=== PATIENT | female | born 1995 | race Caucasian/White ===

== ENCOUNTER 2016-12-30 22:46 | Emergency (ER) | payer OTHER ==
--- NOTE | 2016-12-30 23:47 | ER Document Report ---
ED General - General Chief Complaint: Vag Bleeding, +preg <12wks Stated Complaint: CRAMPING,VAGINAL BLEEDING Time Seen by Provider: 12/30/16 23:24 TRAVEL OUTSIDE OF THE [place] IN LAST 30 DAYS: No - HPI Notes: Patient is a 21-year-old female who is now a presents to the ED complaining of abdominal cramping and spotting while being approximately 6 weeks . Pt states that she has an occ mild HANNAH as well. Currently patient does not have any cramping. Patient states that she did have an early miscarriage that presented with similar symptoms in the past. Patient states that the spotting began this afternoon, while the cramping began a couple days ago. Patient states that she is still eating and drinking without any difficulties. She has not noticed any trouble urinating or issues with her bowel movements. Patient has not been seen by an LABOR RELATIONS MANAGER, but is scheduled in 2 weeks for follow-up. The pain does not radiate otherwise. Denies any fever, head injury, neck pain, URI, sore throat, chest pain, palpitations, syncope, cough, shortness of breath, wheeze, dyspnea, nausea/vomiting/diarrhea, urinary retention, dysuria, hematuria, loss of control of bowel or bladder, back pain, vaginal odor, or rash. Patient denies any smoking or drug use. Past Medical History - Social History Smoking Status: Never Smoker Family History: Reviewed & Not Pertinent Patient has suicidal ideation: No Patient has homicidal ideation: No Renal/ Medical History: Denies: Hx Peritoneal Dialysis Review of Systems - Review of Systems Notes: REVIEW OF SYSTEMS: CONSTITUTIONAL : Denies fever, chills, or sweats. Denies recent illness. EENT: Denies eye, ear, throat, or mouth pain or symptoms. Denies nasal or sinus congestion or discharge. Denies throat, tongue, or mouth swelling or difficulty swallowing. CARDIOVASCULAR: Denies chest pain. Denies palpitations or racing or irregular heart beat. Denies ankle edema. RESPIRATORY: Denies cough, cold, or chest congestion. Denies shortness of breath, difficulty breathing, or wheezing. GASTROINTESTINAL: see hpi GENITOURINARY: Denies difficulty urinating, painful urination, burning, frequency, blood in urine, or discharge. FEMALE GENITOURINARY: see hpi MUSCULOSKELETAL: Denies back or neck pain or stiffness. Denies joint pain or swelling. SKIN: Denies rash, lesions or sores. NEUROLOGICAL: see hpi. denies confusion or altered mental status. Denies passing out or loss of consciousness. Denies dizziness or lightheadedness. Denies weakness or paralysis or loss of use of either side. Denies problems with gait or speech. Denies sensory loss, numbness, or tingling. Denies seizures. ALL OTHER SYSTEMS REVIEWED AND NEGATIVE. Dictation was performed using [employer] voice recognition software Physical Exam - Vital signs Vitals: Temp Pulse Resp BP Pulse Ox 98.8 F 73 18 126/64 H 100 12/30/16 22:50 12/30/16 22:50 12/30/16 22:50 12/30/16 22:50 12/30/16 22:50 Notes: PHYSICAL EXAMINATION: GENERAL: Well-appearing, well-nourished and in no acute distress. EYES: Pupils equal round and reactive to light, extraocular movements intact, sclera anicteric, conjunctiva are normal. NECK: Normal range of motion, supple without lymphadenopathy LUNGS: Breath sounds clear to auscultation bilaterally and equal. No wheezes rales or rhonchi. HEART: Regular rate and rhythm without murmurs, rubs, gallops. ABDOMEN: Soft, nontender, nondistended abdomen. No guarding, no rebound. No masses appreciated. Normal bowel sounds present. No CVA tenderness bilaterally. Extremities: No cyanosis, clubbing, or edema b/l. Peripheral pulses 2+. Capillary refill less than 3 seconds. NEUROLOGICAL: Cranial nerves grossly intact. Normal speech, normal gait. Normal sensory, motor exams PSYCH: Normal mood, normal affect. SKIN: Warm, Dry, normal turgor, no rashes or lesions noted. Course - Re-evaluation Re-evalutation: 12/31/16 01:26 Patient is an afebrile, well-hydrated, 21-year-old female who presents the ED with a living intrauterine with a closed cervix, but reported spotting and cramping (?threatened ). Rh+. Vitals are stable. PE otherwise unremarkable. CBC, CMP, lipase, urinalysis were unremarkable. Refer to the transvaginal ultrasound. Low suspicion/risk for acute appendicitis, bowel obstruction, acute cholecystitis, acute cholangitis, perforated diverticulitis, incarcerated hernia, pancreatitis, perforated ulcer, peritonitis , sepsis, pelvic inflammatory disease, ectopic , tubo-ovarian abscess, ovarian torsion, or other systemic emergent condition at this time. Patient is aware that her condition can change from initial presentation and she needs to monitor symptoms closely and seek medical attention if any acute changes. Conservative measures otherwise for symptoms. Recheck with OBGYN in 1-2 days. Recheck with your PCM in 2-3 days. Return to the ED with any worsening/ concerning symptoms otherwise as reviewed in discharge. Patient is in agreement. - Vital Signs Vital signs: Temp Pulse Resp BP Pulse Ox 98.8 F 73 18 126/64 H 100 12/30/16 22:50 12/30/16 22:50 12/30/16 22:50 12/30/16 22:50 12/30/16 22:50 - Laboratory Result Diagrams: 12/30/16 23:50 12/30/16 23:50 Laboratory results interpreted by me: 12/30/16 12/30/16 12/30/16 23:45 23:50 23:50 WBC 10.9 H Beta HCG, Quant 11027.00 H Urine Urobilinogen 2.0 H Urine Ascorbic Acid 40 H Discharge - Discharge Clinical Impression: Spotting affecting in first trimester, Intrauterine Condition: Stable Disposition: HOME, SELF-CARE Instructions: Bleeding During Early ([facility]), [employer] Sales Expert Doctors, Threatened Miscarriage ([facility]), Follow-Up Care ([facility]) Additional Instructions: Monitor symptoms closely for any acute changes or worsening symptoms Tylenol as needed Direction per hand-outs Recheck with an OBGYN in the next 1-2 days* Recheck with your PCM this week Return to the ED with any worsening symptoms and/or development of fever, headache, chest pain, palpitations, syncope, shortness of breath, trouble breathing, abdominal pain, n/v/d, blood in stool/urine, vaginal bleeding/ discharge, or other worsening symptoms that are concerning to you. Referrals: [facility] [Provider Group] - Follow up as needed LABOR RELATIONS MANAGER [Provider Group] - Follow up tomorrow
[2016-12-31 00:18] LABS: ABSOLUTE EOSINOPHILS # (AUTO) 0.1 10^3/uL (0.0-0.6); ABSOLUTE LYMPHOCYTES (AUTO) 2.2 10^3/uL (0.5-4.7); ABSOLUTE MONOCYTES (AUTO) 0.5 10^3/uL (0.1-1.4); ABSOLUTE NEUT (AUTO) 8.1 10^3/uL (1.7-8.2); BASOPHILS % (AUTO) 0.2 % (0-2); EOSINOPHILS % (AUTO) 1.1 % (0-6); HEMATOCRIT 37.1 % (36.0-47.0); HEMOGLOBIN 12.6 g/dL (12.0-15.5); HGB HCT DIFFERENCE 0.7; LYMPHOCYTES % (AUTO) 20.3 % (13-45); MEAN CORPUSCULAR HEMOGLOBIN 29.7 pg (27.0-33.4); MEAN CORPUSCULAR HGB CONC 34.1 g/dL (32.0-36.0); MEAN CORPUSCULAR VOLUME 87 fl (80-97); MONOCYTES % (AUTO) 4.4 % (3-13); RED BLOOD COUNT 4.26 10^6/uL (3.72-5.28); RED CELL DISTRIBUTION WIDTH 13.8 % (11.5-14.0); WHITE BLOOD COUNT 10.9 10^3/uL (4.0-10.5)
[2016-12-31 00:28] LABS: ALANINE AMINOTRANSFERASE 26 U/L (9-52); ALBUMIN 4.2 g/dL (3.5-5.0); ALKALINE PHOSPHATASE 67 U/L (38-126); ANION GAP 11 (5-19); ASPARTATE AMINO TRANSFERASE 19 U/L (14-36); BILIRUBIN,DIRECT 0.2 mg/dL (0.0-0.4); BILIRUBIN,TOTAL 0.2 mg/dL (0.2-1.3); BLOOD UREA NITROGEN 12 mg/dL (7-20); CARBON DIOXIDE 23 mmol/L (22-30); CHLORIDE 104 mmol/L (98-107); CREATININE RESULT 0.67 mg/dL (0.52-1.25); GLUCOSE 77 mg/dL (75-110); POTASSIUM 3.9 mmol/L (3.6-5.0); SODIUM 137.8 mmol/L (137-145); TOTAL PROTEIN 7.2 g/dL (6.3-8.2)
[2016-12-31 00:46] LABS: APPEARANCE,URINE SLIGHTLY-CLOUDY; BILIRUBIN,URINE NEGATIVE (NEGATIVE); CALCIUM OXALATE CRYSTALS,URINE MODERATE /HPF; GLUCOSE, URINE NEGATIVE (NEGATIVE); KETONES,URINE NEGATIVE (NEGATIVE); LEUKOCYTE ESTERASE,URINE NEGATIVE (NEGATIVE); NITRITE,URINE NEGATIVE (NEGATIVE); PROTEIN,URINE NEGATIVE (NEGATIVE); URINE SPECIFIC GRAVITY 1.026
--- NOTE | 2016-12-31 01:18 | RADIOLOGY REPORT (SQ) ---
EXAM DESCRIPTION: U/S OB TRANSVAG W/DOPPLER COMPLETED DATE/TIME: 12/31/2016 12:36 am REASON FOR STUDY: vaginal bleeding, COMPARISON: None. TECHNIQUE: Transvaginal static and realtime grayscale images acquired of the pelvis. Additional kay cted spectral and color Doppler images recorded. All images stored on PACs. bHCG: Not available. LIMITATIONS: None. FINDINGS: FETUS: Living intrauterine . EGA: 6 weeks and 3 days SAMIR: 08/23/2017 FHR: 114 beats per minute. SUBCHORIONIC BLEED: No. SIZE OF BLEED: Not applicable. UTERUS: No masses. No anomalies. CERVICAL LENGTH: 2.8 cm. Closed. RIGHT ADNEXA: Normal 2.5 cm ovary with normal vascular flow. No adnexal free fluid. No adnexal masses. LEFT ADNEXA: Ovary not identified. No adnexal free fluid. No adnexal masses. FREE FLUID: None. OTHER: No other significant finding. IMPRESSION: LIVING INTRAUTERINE . EGA 6 weeks 3 days Trimester of : First - 0 to 13 weeks. TECHNICAL DOCUMENTATION: JOB ID: [id number] [employer]- All Rights Reserved
[2016-12-31 02:17] VITALS: BP 120/66
== END 2016-12-31 02:15 | disposition home or self-care (01) ==
LOC: ER 22:46
DX: O26.851 Spotting complicating pregnancy, first trimester (principal); O26.891 Other specified pregnancy related conditions, first trimester; R51 Headache; Z3A.00 Weeks of gestation of pregnancy not specified; Z87.59 Personal history of other complications of pregnancy, childbirth and the puerperium
CPT/HCPCS: 36415; 76817; 80053; 81001; 84702; 85025; 86900; 86901; 93976; 99284

== ENCOUNTER 2017-06-18 00:54 | Outpatient (CLI) | payer OTHER ==
[2017-06-18 01:53] LABS: APPEARANCE,URINE CLEAR; BILIRUBIN,URINE NEGATIVE (NEGATIVE); COLOR,URINE COLORLESS; GLUCOSE, URINE NEGATIVE (NEGATIVE); KETONES,URINE NEGATIVE (NEGATIVE); LEUKOCYTE ESTERASE,URINE NEGATIVE (NEGATIVE); NITRITE,URINE NEGATIVE (NEGATIVE); PROTEIN,URINE NEGATIVE (NEGATIVE); URINE SPECIFIC GRAVITY 1.004; UROBILINOGEN,URINE NEGATIVE mg/dL (<2.0)
[2017-06-18 01:58] LABS: URINE AMPHETAMINES SCREEN NEGATIVE; URINE BARBITURATES SCREEN NEGATIVE; URINE BENZODIAZEPINES SCREEN NEGATIVE; URINE COCAINE SCREEN NEGATIVE; URINE MARIJUANA (THC) SCREEN NEGATIVE; URINE METHADONE SCREEN NEGATIVE; URINE PHENCYCLIDINE SCREEN NEGATIVE
== END 2017-06-18 02:30 | disposition home or self-care (01) ==
LOC: LC 00:54
PROVIDERS: ATTEND Obstetrics & Gynecology
PROC: 4A1HXCZ Monitoring of Products of Conception, Cardiac Rate, External Approach (ICD-10-PCS; principal; 2017-06-18)
DX: O47.03 False labor before 37 completed weeks of gestation, third trimester (principal); Z3A.31 31 weeks gestation of pregnancy; Z79.899 Other long term (current) drug therapy
CPT/HCPCS: 80307; 81001

== ENCOUNTER → 2017-07-23 | Outpatient (CLI) | payer OTHER ==
--- NOTE | 2017-07-23 11:14 | Non Stress Test Report ---
Non Stress Test Datetime Report Generated by CPN: 07/23/2017 11:13 DEMOGRAPHIC EGA NST: 36.0 INDICATION Indication for Study: Ordered by Provider MONITORING Monitor Explained: Monitor Explained; Test Explained; Patient Verbalized Understanding Time on Monitor: 07/23/2017 10:09 Time off Monitor: 07/23/2017 11:12 NST Duration: 63 NST INTERVENTIONS NST Interventions: PO Hydration BABY A: [id number] BABY A Movement : Present Contraction Frequency : rare FHR Baseline : 120 Accelerations : 15X15 Decelerations : None Variability : Moderate 6-25bpm NST Review: Meets Criteria for Reactive NST NST Review and Verified By : D Bellavance RNC NST Results: Reactive NST REPORT Report Trigger: Send Report
== END ==
LOC: LC 09:51
PROVIDERS: ATTEND Obstetrics & Gynecology
PROC: 4A1HXCZ Monitoring of Products of Conception, Cardiac Rate, External Approach (ICD-10-PCS; principal; 2017-07-23)
DX: Z34.93 Encounter for supervision of normal pregnancy, unspecified, third trimester (principal)
CPT/HCPCS: 59025

== ENCOUNTER 2017-08-08 13:22 | Outpatient (CLI) | payer OTHER ==
[2017-08-08 14:47] LABS: APPEARANCE,URINE CLEAR; BILIRUBIN,URINE NEGATIVE (NEGATIVE); COLOR,URINE YELLOW; GLUCOSE, URINE NEGATIVE (NEGATIVE); KETONES,URINE NEGATIVE (NEGATIVE); LEUKOCYTE ESTERASE,URINE NEGATIVE (NEGATIVE); NITRITE,URINE NEGATIVE (NEGATIVE); PROTEIN,URINE NEGATIVE (NEGATIVE); URINE SPECIFIC GRAVITY 1.012; UROBILINOGEN,URINE NEGATIVE mg/dL (<2.0)
[2017-08-08 14:59] LABS: URINE AMPHETAMINES SCREEN NEGATIVE; URINE BARBITURATES SCREEN NEGATIVE; URINE BENZODIAZEPINES SCREEN NEGATIVE; URINE COCAINE SCREEN NEGATIVE; URINE MARIJUANA (THC) SCREEN NEGATIVE; URINE METHADONE SCREEN NEGATIVE; URINE PHENCYCLIDINE SCREEN NEGATIVE
== END 2017-08-08 15:26 | disposition home or self-care (01) ==
LOC: LC 13:22
PROVIDERS: ATTEND Student in an Organized Health Care Education/Training Program
PROC: 4A1HXCZ Monitoring of Products of Conception, Cardiac Rate, External Approach (ICD-10-PCS; principal; 2017-08-08)
DX: O47.1 False labor at or after 37 completed weeks of gestation (principal); Z3A.38 38 weeks gestation of pregnancy
CPT/HCPCS: 80307; 81001; 82962

== ENCOUNTER 2017-08-11 15:13 | Outpatient (CLI) | payer OTHER | END 2017-08-11 15:49 | disposition home or self-care (01) | LOC: LC 15:13 | PROVIDERS: ATTEND Obstetrics & Gynecology Gynecology | PROC: 4A1HXCZ Monitoring of Products of Conception, Cardiac Rate, External Approach (ICD-10-PCS; principal; 2017-08-11) | DX: Z34.93 Encounter for supervision of normal pregnancy, unspecified, third trimester (principal) | CPT/HCPCS: 59025 ==

== ENCOUNTER 2017-08-19 16:42 | Outpatient (CLI) | payer OTHER ==
--- NOTE | 2017-08-19 17:58 | Non Stress Test Report ---
Non Stress Test Datetime Report Generated by CPN: 08/19/2017 17:58 DEMOGRAPHIC Test Number: 2 EGA NST: 39.6 EGA NST: 38.5 EGA NST: 38.2 INDICATION Indication for Study: Diabetes Mellitus Indication for Study: Gestational Hypertension Indication for Study: Ordered by Provider VITAL SIGNS Temperature - NST: 98.4 Temperature - NST: 98.6 Pulse - NST: 75 RESP - NST: 18 NBPSYS NST: 128 NBPSYS NST: 116 NBPDIA NST: 77 NBPDIA NST: 74 MONITORING Monitor Explained: Monitor Explained; Test Explained; Patient Verbalized Understanding Monitor Explained: Monitor Explained; Test Explained; Patient Verbalized Understanding Monitor Explained: Monitor Explained; Test Explained; Patient Verbalized Understanding Time on Monitor: 08/19/2017 17:04 Time on Monitor: 08/11/2017 15:26 Time on Monitor: 08/08/2017 13:51 Time off Monitor: 08/19/2017 17:25 Time off Monitor: 08/11/2017 15:47 Time off Monitor: 08/08/2017 14:20 NST Duration: 21 NST Duration: 21 NST Duration: 29 NST INTERVENTIONS NST Interventions: None NST Interventions: PO Hydration NST Interventions: None Physician Notified NST: Keegan Batista CNM Physician Notified NST: Dilia Alba CNMercedes Physician Notified NST: Dr. Davis BABY A: [id number] BABY A Movement : Present Movement : Present Movement : Present Contraction Frequency : rare Contraction Frequency : none Contraction Frequency : Occ FHR Baseline : 130 FHR Baseline : 130 FHR Baseline : 135 Accelerations : 15X15 Accelerations : 15X15 Accelerations : 15X15 Decelerations : None Decelerations : None Decelerations : None Variability : Moderate 6-25bpm Variability : Moderate 6-25bpm Variability : Moderate 6-25bpm NST Review: Meets Criteria for Reactive NST NST Review: Meets Criteria for Reactive NST NST Review: Meets Criteria for Reactive NST NST Review and Verified By : Diann CRUZ NST Review and Verified By : GEOVANI NICE RN NST Review and Verified By : Rosa Maria Jeffries RN NST Results: Reactive NST Results: Reactive NST Results: Reactive NST REPORT Report Trigger: Send Report
== END 2017-08-19 17:26 | disposition home or self-care (01) ==
LOC: LC 16:42
PROVIDERS: ATTEND Obstetrics & Gynecology
PROC: 4A1HXCZ Monitoring of Products of Conception, Cardiac Rate, External Approach (ICD-10-PCS; principal; 2017-08-19)
DX: O24.419 Gestational diabetes mellitus in pregnancy, unspecified control (principal); O13.3 Gestational [pregnancy-induced] hypertension without significant proteinuria, third trimester; Z3A.39 39 weeks gestation of pregnancy
CPT/HCPCS: 59025

== ENCOUNTER 2017-08-20 22:56 | Outpatient (CLI) | payer OTHER ==
[2017-08-21 00:08] LABS: URINE AMPHETAMINES SCREEN NEGATIVE; URINE BARBITURATES SCREEN NEGATIVE; URINE BENZODIAZEPINES SCREEN NEGATIVE; URINE COCAINE SCREEN NEGATIVE; URINE MARIJUANA (THC) SCREEN NEGATIVE; URINE METHADONE SCREEN NEGATIVE; URINE PHENCYCLIDINE SCREEN NEGATIVE
[2017-08-21 00:19] LABS: APPEARANCE,URINE SLIGHTLY-CLOUDY; BILIRUBIN,URINE NEGATIVE (NEGATIVE); COLOR,URINE YELLOW; GLUCOSE, URINE NEGATIVE (NEGATIVE); KETONES,URINE NEGATIVE (NEGATIVE); LEUKOCYTE ESTERASE,URINE NEGATIVE (NEGATIVE); NITRITE,URINE NEGATIVE (NEGATIVE); PROTEIN,URINE NEGATIVE (NEGATIVE); URINE SPECIFIC GRAVITY 1.012; UROBILINOGEN,URINE NEGATIVE mg/dL (<2.0)
--- NOTE | 2017-08-21 00:50 | Non Stress Test Report ---
Non Stress Test Datetime Report Generated by CPN: 08/21/2017 00:49 DEMOGRAPHIC EGA NST: 40.0 INDICATION Indication for Study: Ordered by Provider URINE RESULTS Urine Protein, NST: Negative Urine Ketones - NST: Negative Urine Glucose - NST: Negative Urine Blood - NST: Negative MONITORING Monitor Explained: Monitor Explained; Test Explained; Patient Verbalized Understanding Time on Monitor: 08/20/2017 23:12 Time off Monitor: 08/21/2017 00:32 NST Duration: 80 NST INTERVENTIONS NST Interventions: PO Hydration Physician Notified NST: Dr. Valentine BABY A: [id number] BABY A Movement : Present Contraction Frequency : Irregular FHR Baseline : 125 Accelerations : 15X15 Decelerations : None Variability : Moderate 6-25bpm NST Review: Meets Criteria for Reactive NST NST Review and Verified By : Cristal Arora RN NSJose Daniel Results: Reactive NST REPORT Report Trigger: Send Report
== END 2017-08-21 00:37 | disposition home or self-care (01) ==
LOC: LC 22:56
PROVIDERS: ATTEND Obstetrics & Gynecology Gynecology
PROC: 4A1HXCZ Monitoring of Products of Conception, Cardiac Rate, External Approach (ICD-10-PCS; principal; 2017-08-20)
DX: Z34.93 Encounter for supervision of normal pregnancy, unspecified, third trimester (principal)
CPT/HCPCS: 59025; 80307; 81005

== ENCOUNTER 2017-08-24 18:27 | Inpatient (IN) | payer OTHER ==
[2017-08-24] MEDS ORDERED: RINGERS SOLUTION,LACTATED 1,000 ML IV PRN (18:37)
[2017-08-24] MEDS ORDERED: RINGERS SOLUTION,LACTATED 300 ML IV ONE (18:37)
[2017-08-24] MEDS ORDERED: DINOPROSTONE 10 MG VAGINAL INSERT.SR PV PRN (18:37)
[2017-08-24 19:00] LABS: APPEARANCE,URINE CLOUDY; BILIRUBIN,URINE NEGATIVE (NEGATIVE); COLOR,URINE YELLOW; GLUCOSE, URINE 50 mg/dL (NEGATIVE); KETONES,URINE NEGATIVE (NEGATIVE); LEUKOCYTE ESTERASE,URINE NEGATIVE (NEGATIVE); NITRITE,URINE NEGATIVE (NEGATIVE); PROTEIN,URINE NEGATIVE (NEGATIVE); URINE SPECIFIC GRAVITY 1.017
[2017-08-24 19:09] LABS: ABSOLUTE BASOPHILS # (AUTO) 0.1 10^3/uL (0.0-0.2); ABSOLUTE EOSINOPHILS # (AUTO) 0.1 10^3/uL (0.0-0.6); ABSOLUTE LYMPHOCYTES (AUTO) 1.6 10^3/uL (0.5-4.7); ABSOLUTE MONOCYTES (AUTO) 0.6 10^3/uL (0.1-1.4); ABSOLUTE NEUT (AUTO) 9.5 10^3/uL (1.7-8.2); BASOPHILS % (AUTO) 0.5 % (0-2); EOSINOPHILS % (AUTO) 0.7 % (0-6); HEMATOCRIT 38.4 % (36.0-47.0); LYMPHOCYTES % (AUTO) 13.3 % (13-45); MEAN CORPUSCULAR VOLUME 91 fl (80-97); PLATELET COUNT 236 10^3/uL (150-450); RED BLOOD COUNT 4.21 10^6/uL (3.72-5.28); SEGMENTED NEUTROPHILS % (AUTO) 80.5 % (42-78); TOTAL CELLS COUNTED % (AUTO) 100 %; WHITE BLOOD COUNT 11.8 10^3/uL (4.0-10.5)
[2017-08-24 19:21] LABS: URINE AMPHETAMINES SCREEN NEGATIVE; URINE BARBITURATES SCREEN NEGATIVE; URINE BENZODIAZEPINES SCREEN NEGATIVE; URINE COCAINE SCREEN NEGATIVE; URINE MARIJUANA (THC) SCREEN NEGATIVE; URINE METHADONE SCREEN NEGATIVE; URINE PHENCYCLIDINE SCREEN NEGATIVE
[2017-08-24] MEDS ORDERED: DINOPROSTONE 10 MG VAGINAL INSERT.SR ONE (20:55)
--- NOTE | 2017-08-24 21:29 | Admission Physical ---
Datetime Report Generated by CPN: 08/24/2017 21:28 CURRENT ADMISSION Chief Complaint: Scheduled Induction of Labor Indication for Induction: Maternal Diabetes Admit Impression : Term, Intrauterine ; No Active Labor; Intact Membranes; Induction of Labor Admit Plan: Admit to Unit; Initiate Labor Induction Protocol ALLERGIES Medication Allergies: No Medication Allergies: No Known Allergies (08/24/2017) Latex: No Latex Allergies Food Allergies: none Environmental Allergies: none OBSTETRICAL HISTORY EDC: 08/20/2017 00:00 : 2 Para: 0 Term: 0 : 0 SAB: 0 IAB: 0 Ectopic: 0 Livin Cesareans: 0 VBACs: 0 Multiple Births: 0 Gestational Diabetes: Yes Rh Sensitization: No Incompetent Cervix: No PORSHA: No Infertility: No ART Treatment: No Uterine Anomaly: No IUGR: No Hx Previous C/S: No Macrosomia: No Hx Loss/Stillborn: No PIH: No Hx : No Placenta Previa/Abruption: No Depression/PP Depression: Yes PTL/PROM: No Post Hemorrhage: No Current Procedures: Ultrasound Obstetrical History Comments: 05/2016 SAB 4-5weeks G2 - current, GDM, diet controlled SEE RECORDS Alcohol: No Marijuana : No Cocaine: No Other Illicit Drugs: No Cigarettes: Never Smoker. [id number] MEDICAL HISTORY Diabetes: Yes Diabetes Type: Gestational Diabetes Blood Transfusion: No Pulmonary Disease (Asthma, TB): No Breast Disease: No Hypertension: No Teaching Assistant Surgery: No Heart Disease: No Hosp/Surgery: Yes Autoimmune Disorder: No Anesthetic Complications: No Kidney Disease: No Abnormal Pap Smear: No Neuro/Epilepsy: No Psychiatric Disorders: No Other Medical Diseases: No Hepatitis/Liver Disease: No Significant Family History: No Varicosities/Phlebitis: No Trauma/Violence : No Thyroid Dysfunction: No Medical History Comments: Hx of Suicide attempt in 2016 2006 surgery on foot to remove infection INFECTIOUS HISTORY Gonorrhea: No Genital Herpes: No Chlamydia: No Tuberculosis: No Syphilis: No Hepatitis: No HIV/AIDS Exposure: No Rash or Viral Illness: No HPV: No PHYSICAL EXAM General: Normal HEENT: Normal Neurologic: Normal Thyroid: Deferred Heart: Normal Lungs: Normal Breast: Deferred Back: Normal Abdomen: Normal Genitourinary Exam: Normal Extremities: Normal DTRs: Normal Pelvic Type: Adequate Vital Signs: Reviewed VAGINAL EXAM Dilatation: 1 Effacement: 50 Station: -2 Contraction Comments: q 5-7 MEMBRANES Membranes: Intact FETUS A EGA: 40.4 Monitoring: External US FHR- Baseline: 120 Variability: Moderate 6-25bpm Accelerations: 15X15 Decelerations: None Presentation: Vertex Admit Comment: 21yo at 40+4ega presents for IOL due to A1GDM (no logs on last several visits). Cervix not favorable. Bishops 5 - and patient was counseled in office regarding. Pelvis adequate for LEAH. Reassuring FWB. 2 wk AC lag - monitor s/d ratios. GBS negative. Cervidil placed for cervical ripening. Will likely need cooks catheter and pitocin in am. Anticipate . PLANS FOR LABOR AND DELIVERY Labor and Delivery: None Pain Management: None Other Pain Management Plans: Undecided Feeding Preference: Both Benefit of Breast Feed Discussed: Yes Circumcision: N/A INFORMED CONSENT Informed Consent Obtained: Vaginal Delivery; Induction of Labor; Risks, Benefits and Alternatives Discussed Signature: with User ID: [email or web address]
[2017-08-25] MEDS ORDERED: NALBUPHINE HCL INJ 10 MG/1 ML AMPULE ONE (03:52)
[2017-08-25] MEDS ORDERED: OXYTOCIN/NORMAL SALINE 20 UNIT/1,000 ML RTUINJ IV PRN ×2 (04:18→10:07)
[2017-08-25] MEDS ORDERED: OXYTOCIN/NORMAL SALINE 0 UNIT/0 ML RTUINJ ONE (04:25)
[2017-08-25] MEDS ORDERED: NALBUPHINE HCL INJ 10 MG/1 ML AMPULE INJ ONE (04:32)
--- NOTE | 2017-08-25 04:34 | L&D Progress Notes ---
PROGRESS NOTES Datetime Report Generated by CPN: 08/25/2017 04:34 PROGRESS NOTE Impression: Normal Progression of Labor Plan: Continue Present Management; Induction; Anticipate Vaginal Delivery Informed Consent Obtained: Vaginal Delivery; Induction of Labor; Risks, Benefits and Alternatives Discussed Informed Consent Obtained: Vaginal Delivery; Induction of Labor; Risks, Benefits and Alternatives Discussed Comment: Cervidil placed at 2100 and fell out at approx 0245. Will begin pitocin Induction. Bishops now 9 - favorable. Nubain given for pain. Epidural upon patient request. Anticipate . H/o suicide attempt will need community development planner pp. VAGINAL EXAM Dilatation: 1 Effacement: 50 Station: -2 Contractions: q 5-7 MEMBRANES Membranes: Intact Membranes: Intact FETUS A FHR - Baseline: 125 Monitoring: External US Variability: Moderate 6-25bpm Accelerations: 15X15 Decelerations: None FHR Category: Category I Presentation: Vertex SIGNATURE SIGNATURE: [id number];[id number];[id number] SIGNATURE: [id number];[id number] SIGNATURE: [id number] SIGNATURE: [id number] SIGNATURE: [id number] Signature: with User ID: [email or web address]
[2017-08-25] MEDS ORDERED: FENTANYL CITRATE INJ/PF 100 MCG/2 ML AMPUL ONE (05:16)
[2017-08-25] MEDS ORDERED: EPHEDRINE SULFATE INJ 50 MG/1 ML AMPULE ONE (05:16)
[2017-08-25] MEDS ORDERED: PHENYLEPHRINE HCL INJ/PF 10 MG/1 ML SDV ONE (05:16)
[2017-08-25] MEDS ORDERED: MISOPROSTOL 0.2 MG TABLET ONE (05:17)
[2017-08-25] MEDS ORDERED: OXYTOCIN/NORMAL SALINE 20 UNIT/1,000 ML RTUINJ ONE (05:17)
[2017-08-25] MEDS ORDERED: BUPIVACAINE HCL 0.25 % INJ/PF (2.5 MG/1 ML) 30 ML VIAL ONE (05:17)
[2017-08-25] MEDS ORDERED: LIDOCAINE 1% INJ-PF (10 MG/ML) 30 ML SDV ONE (05:17)
[2017-08-25] MEDS ORDERED: FENTANYL/BUPIVACAINE/NS/PF 300 MCG/150 ML RTUINJ EPI ONE (05:17)
[2017-08-25] MEDS ORDERED: EPHEDRINE SULFATE INJ 50 MG/1 ML AMPULE IV PRN (05:31)
[2017-08-25] MEDS ORDERED: EPHEDRINE SULFATE INJ 50 MG/1 ML AMPULE IV ONE (05:31)
[2017-08-25] MEDS ORDERED: BUPIVACAINE HCL 0.25 % INJ/PF (2.5 MG/1 ML) 30 ML VIAL INFIL ONE (05:31)
[2017-08-25] MEDS ORDERED: FENTANYL/BUPIVACAINE/NS/PF 200 MCG/100 ML RTUINJ EPI PRN (05:31)
[2017-08-25] MEDS ORDERED: BENZOIN/ALOE VERA/STORAX/TOLU TINCTURE 60 ML TP PRN (05:31)
[2017-08-25] MEDS ORDERED: ACETAMINOPHEN WITH CODEINE #3 TABLET PO PRN (10:07)
[2017-08-25] MEDS ORDERED: DIBUCAINE 1% OINTMENT 28 GM TP PRN (10:07)
[2017-08-25] MEDS ORDERED: MEASLES,MUMPS&RUBELLA VACC/PF 0.5 ML VIAL SUBCUT PRN (10:07)
[2017-08-25] MEDS ORDERED: BENZOCAINE/MENTHOL AEROSOL SPRAY 56 ML TOP PRN (10:07)
[2017-08-25] MEDS ORDERED: ZOLPIDEM TARTRATE 5 MG TABLET PO PRN (10:07)
[2017-08-25] MEDS ORDERED: DIPH/PERTUSS(ACELL)/TETANUS VAC/PF 0.5 ML SYR (>=10YO) IM PRN (10:07)
--- NOTE | 2017-08-25 10:55 | Delivery Summary ---
Del Sum A-C Datetime Report Generated by CPN: 08/25/2017 10:54 DELIVERY PERSONNEL DELIVERY PERSONNEL: [id number] Delivery Doctor:: Nicky Stone CNM Labor and Delivery Nurse:: NANCY Gasca Labor and Delivery Nurse:: Stewart Liu RN Nursery Nurse:: NANCY Bauer Footwear Production Machine Operator/FRUIT RANCHER: Dominique Way, FRUIT RANCHER II MATERNAL INFORMATION Delivery Anesthesia: Epidural Medications After Delivery: Pitocin Bolus-Please Comment; Pitocin Drip 20 Units/1000ml NSS Provider Comments: of viable female , head, shoulders, and body delivered without difficulty, with spontaneous cry and respirations, to maternal abdomen, cord, clamped X2 and cut free after 2 min delay. Spontaneous delivery of placenta appears intact, meconium stained, 3 VC, delivered via jorge mechanism. hemostasis acheived with external fundal massage and IV pitocin, mother and infant in stable condition, routine pp care. LABOR SUMMARY EDC: 08/20/2017 00:00 No. Babies in Womb: 1 Attempted: No Labor Anesthesia: Epidural LABOR INFORMATION Onset of Labor: 08/25/2017 05:07 Complete Dilatation: 08/25/2017 07:47 Cervical Ripening Agents: Cervidil Oxytocin: Induction Group B Beta Strep: Negative Steroids Given: None Reason Steroids Not Administered: Not Applicable MEMBRANES Membranes Rupture Method: Spontaneous Rupture of Membranes: 08/25/2017 05:07 Length of Rupture (hr): 3.47 Amniotic Fluid Color: Moderate Meconium Amniotic Fluid Amount: Moderate Amniotic Fluid Odor: Normal STAGES OF LABOR Stage 1 hr: 2 Stage 1 min: 40 Stage 2 hr: 0 Stage 2 min: 48 Stage 3 hr: 0 Stage 3 min: 4 Total Time in Labor hr: 3 Total Time in Labor min: 32 VAGINAL DELIVERY Episiotomy: None Laceration #1: None Laceration Repair: Not Applicable Laceration Repair Note: none Sponge Count Correct: N/A Sharps Count Correct: N/A CSECTION DELIVERY Primary Indication: N/A Secondary Indication: N/A CSection Incidence: N/A Labor: N/A Elective: N/A CSection Incision: N/A BABY A INFORMATION Delivery Date/Time: 08/25/2017 08:35 Method of Delivery: Vaginal Born in Route : No : N/A Forceps: N/A Vacuum Extraction: N/A Shoulder Dystocia : No PRESENTATION/POSITION BABY A Presentation: Cephalic Cephalic Presentation: Vertex Vertex Position: Left Occipital Anterior Breech Presentation: N/A PLACENTA INFORMATION BABY A Placenta Delivery Time : 08/25/2017 08:39 Placenta Method of Delivery: Spontaneous Placenta Status: Delivered SCORES BABY A Heart Rate 1 min: >100 bpm Resp Effort 1 min: Good Cry Reflex Irritability 1 min: Cough or Sneeze or Pulls Away Muscle Tone 1 min: Active Motion Color 1 min: Blue/Pale Resuscitation Effort 1 min: N/A; Tactile Stimulation SCORE 1 MIN: 8 Heart Rate 5 min: >100 bpm Resp Effort 5 min: Good Cry Reflex Irritability 5 min: Cough or Sneeze or Pulls Away Muscle Tone 5 min: Active Motion Color 5 min: Body [place], Extremities Blue Resuscitation Effort 5 min: N/A; Tactile Stimulation SCORE 5 MIN: 9 Resuscitation Effort 10 min: N/A INFORMATION BABY A Gestational Age at Delivery: 40.5 Gestational Status: Full Term- 39- 40.6 Weeks Infant Outcome : Liveborn Infant Condition : Stable Sex: Female IDENTIFICATION BABY A Infant Verification Date/Time: 08/25/2017 08:49 ID Band Number: [id number] Mother's Name Verified: Yes RN Verifying : R Jorden RN, D Bellavance RN WEIGHT/LENGTH BABY A Infant Birthweight (gm): 2940 Weight (lb): 6 Infant Weight (oz): 8 Infant Length (in): 19.50 Length (cm): 49.53 CORD INFORMATION BABY A No. Cord Vessels: 3 Nuchal Cord : N/A Cord Blood Taken: Yes-For Storage (Mom's Blood type +) Suction: Mouth ASSESSMENT BABY A Complications: None Physical Findings at Delivery: Puncture Wound from Scalp Electrode Infant Respirations: Appears Normal Skin to Skin: Yes Contact Center Specialist/ALS Called : No Infant Care By: D Bellavance RNC Transferred To: Remains with Mother BABY B INFORMATION : N/A SIGNATURES Assignment: Eladio Valentine MD Signature: with User ID: Mercedes : with User ID: [email or web address]
[2017-08-25] MEDS: IBUPROFEN 800 MG TABLET PO SCH ×2 (15:22→21:00)
[2017-08-25] MEDS: DOCUSATE SODIUM 100 MG CAPSULE PO SCH (18:25)
[2017-08-25] MEDS: FERROUS SULFATE 325 MG TABLET PO SCH (18:25)
[2017-08-25] MEDS: ACETAMINOPHEN WITH CODEINE #3 TABLET PO PRN (20:56)
[2017-08-26] MEDS: IBUPROFEN 800 MG TABLET PO SCH ×3 (06:59→22:06)
[2017-08-26 07:46] LABS: HEMATOCRIT 34.7 % (36.0-47.0); HEMOGLOBIN 11.5 g/dL (12.0-15.5); MEAN CORPUSCULAR HEMOGLOBIN 30.6 pg (27.0-33.4); MEAN CORPUSCULAR HGB CONC 33.3 g/dL (32.0-36.0); MEAN CORPUSCULAR VOLUME 92 fl (80-97); PLATELET COUNT 197 10^3/uL (150-450); RED BLOOD COUNT 3.77 10^6/uL (3.72-5.28); RED CELL DISTRIBUTION WIDTH 15.4 % (11.5-14.0); WHITE BLOOD COUNT 11.7 10^3/uL (4.0-10.5)
[2017-08-26] MEDS: PRENATAL VITAMIN W DHA CAPSULE PO SCH (09:15)
[2017-08-26] MEDS: DOCUSATE SODIUM 100 MG CAPSULE PO SCH ×2 (09:16→18:08)
[2017-08-26] MEDS: FERROUS SULFATE 325 MG TABLET PO SCH ×2 (09:16→18:08)
[2017-08-26] MEDS: SENNOSIDES/DOCUSATE 8.6-50 MG 1 EACH TABLET PO SCH (09:17)
--- NOTE | 2017-08-26 11:15 | PDOC PROGRESS REPORT ---
Subjective-OB Progress Note for:: 08/26/17 Subjective: s/p day #1 denies concern, lochia is stable, pain well controlled, voiding without difficulty. Physical Exam (OB) Vital Signs: Temp Pulse Resp BP Pulse Ox 97.8 F 82 18 105/49 L 85 L 08/26/17 07:37 08/26/17 07:37 08/26/17 07:37 08/26/17 07:37 08/26/17 07:37 Intake & Output 08/25/17 08/26/17 08/27/17 06:59 06:59 06:59 Weight 71.5 kg - PIH/Pre-Eclampsia DTR's: 2 + Clonus: Negative Headache: Absent Epigastric Pain: No Visual Changes: No - Lochia Lochia Amount: Scant < 10 ml Lochia Color: Rubra/Red - Abdomen Description: Soft, Round Hernia Present: No Fundal Description: Firm Fundal Height: u/u - u/2 Objective-Diagnostic Laboratory: 08/26/17 07:06 08/26/17 07:06 WBC 11.7 H RBC 3.77 Hgb 11.5 L Hct 34.7 L MCV 92 MCH 30.6 MCHC 33.3 RDW 15.4 H Plt Count 197 Assessment and Plan(PN) - Assessment and Plan (1) Vaginal delivery Is this a current diagnosis for this admission?: Yes Plan: routine pp care (2) Depression affecting Is this a current diagnosis for this admission?: Yes Plan: d/c conservation planner (3) Gestational diabetes mellitus (GDM) in childbirth, diet controlled Is this a current diagnosis for this admission?: Yes Plan: yearly f/u (4) H/O suicide attempt Is this a current diagnosis for this admission?: Yes Plan: d/c conservation planner - Time Spent with Patient Time with patient: Less than 15 minutes Critical Time spent with patient: Less than 15 minutes Medications reviewed and adjusted accordingly: Yes - Disposition Anticipated Discharge: Home Within: within 24 hours
[2017-08-26] MEDS: ACETAMINOPHEN WITH CODEINE #3 TABLET PO PRN (22:05)
[2017-08-27] MEDS: IBUPROFEN 800 MG TABLET PO SCH (06:23)
[2017-08-27 08:11] VITALS: BP 112/49
[2017-08-27] MEDS: DOCUSATE SODIUM 100 MG CAPSULE PO SCH (09:56)
[2017-08-27] MEDS: FERROUS SULFATE 325 MG TABLET PO SCH (09:56)
[2017-08-27] MEDS: PRENATAL VITAMIN W DHA CAPSULE PO SCH (09:56)
[2017-08-27] MEDS: SENNOSIDES/DOCUSATE 8.6-50 MG 1 EACH TABLET PO SCH (09:56)
--- NOTE | 2017-08-27 11:30 | PDOC PROGRESS REPORT ---
Subjective-OB Progress Note for:: 08/27/17 Subjective: Doing well, no c/o, on Zoloft 100, no issues with depression or anxiety, breast feeding. eating well, mod lochia Physical Exam (OB) Vital Signs: Temp Pulse Resp BP Pulse Ox 98.0 F 65 16 112/49 L 99 08/27/17 07:50 08/27/17 07:50 08/26/17 19:44 08/27/17 07:50 08/27/17 07:50 Intake & Output 08/26/17 08/27/17 08/28/17 06:59 06:59 06:59 Intake Total 250 Balance 250 - PIH/Pre-Eclampsia DTR's: 1 + Clonus: Negative Headache: Absent Epigastric Pain: No Visual Changes: No - Lochia Lochia Amount: Scant < 10 ml Lochia Color: Rubra/Red - Abdomen Description: Soft, Round Hernia Present: No Fundal Description: Firm, Midline Fundal Height: u/u - u/2 Objective-Diagnostic Laboratory: 08/26/17 07:06 Assessment and Plan(PN) - Assessment and Plan (1) Vaginal delivery Is this a current diagnosis for this admission?: Yes (2) Depression affecting Is this a current diagnosis for this admission?: Yes (3) Gestational diabetes mellitus (GDM) in childbirth, diet controlled Is this a current diagnosis for this admission?: Yes (4) H/O suicide attempt Is this a current diagnosis for this admission?: Yes - Time Spent with Patient Medications reviewed and adjusted accordingly: Yes - Disposition Anticipated Discharge: Home Within: Other - home today
--- NOTE | 2017-08-27 11:34 | PDOC DISCHARGE SUMMARY ---
Final Diagnosis Discharge Date: 08/27/17 - Final Diagnosis (1) Vaginal delivery Is this a current diagnosis for this admission?: Yes (2) Depression affecting Is this a current diagnosis for this admission?: Yes (3) Gestational diabetes mellitus (GDM) in childbirth, diet controlled Is this a current diagnosis for this admission?: Yes (4) H/O suicide attempt Is this a current diagnosis for this admission?: Yes Discharge Data - Discharge Medication Home Medications: Pnv 102/Iron/Folate 1/Dss/Dha [Vitafol Fe+ Docusate Combo Pck] 1 tab PO DAILY Sertraline HCl [Zoloft 50 mg Tablet] 100 mg PO DAILY 06/18/17 Gestational Age: 40+5 Reason(s) for Admission: Induction of Labor, Gestional Diabetes Procedures: NST, Ultrasound Intrapartum Procedure(s): Spontaneous Vaginal Delivery - [place] Data Baby 1 Female Home with Mother: Yes Complications: No - Diagnosis Test Laboratory: Temp Pulse Resp BP Pulse Ox 98.0 F 65 16 112/49 L 99 08/27/17 07:50 08/27/17 07:50 08/26/17 19:44 08/27/17 07:50 08/27/17 07:50 08/24/17 08/24/17 08/26/17 18:31 18:58 07:06 RBC 4.21 3.77 Hgb 13.0 11.5 L Hct 38.4 34.7 L Urine Opiates Screen NEGATIVE - Discharge information/Instructions Discharge Activity: Activity As Tolerated, No Lifting Over 10 Pounds, No Lifting /Push/Pulling, Pelvic Rest Discharge Diet: As Tolerated, Regular Disposition: HOME, SELF-CARE Follow up with: [facility] in: 2, Weeks - continue zoloft
== END 2017-08-27 13:09 | disposition home or self-care (01) | DRG 775 ==
LOC: LR 18:27 → 2S 08-25 10:40 → EDSTATUS 09-01 14:04
PROVIDERS: ADMIT Student in an Organized Health Care Education/Training Program; ATTEND Student in an Organized Health Care Education/Training Program
PROC: 4A1HXCZ Monitoring of Products of Conception, Cardiac Rate, External Approach (ICD-10-PCS; 2017-08-24)
PROC: 10E0XZZ Delivery of Products of Conception, External Approach (ICD-10-PCS; principal; 2017-08-25)
PROC: 3E0P7VZ Introduction of Hormone into Female Reproductive, Via Natural or Artificial Opening (ICD-10-PCS; 2017-08-25)
PROC: 3E033VJ Introduction of Other Hormone into Peripheral Vein, Percutaneous Approach (ICD-10-PCS; 2017-08-25)
DX: O24.420 Gestational diabetes mellitus in childbirth, diet controlled (principal); O99.344 Other mental disorders complicating childbirth; F32.9 Major depressive disorder, single episode, unspecified; O77.0 Labor and delivery complicated by meconium in amniotic fluid; Z3A.40 40 weeks gestation of pregnancy; Z37.0 Single live birth
CPT/HCPCS: 36415; 80307; 81001; 85025; 85027; 86592; 86850; 86900; 86901; J2300; J2370; J2590; J3010; J3490